=== PATIENT | male | born 1965 | race Caucasian/White ===

== ENCOUNTER 2017-03-04 21:26 | Emergency (ER) | payer OTHER ==
[2017-03-04 21:34] VITALS: BP 127/61; PULSE 116; TEMP 98.1; BMI 25.6
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
== END 2017-03-04 23:34 | disposition left against medical advice (07) ==
LOC: JER 21:26 → JERFT 21:26 → JER 23:34
DX: K62.89 Other specified diseases of anus and rectum (principal); T18.5XXA Foreign body in anus and rectum, initial encounter; K64.9 Unspecified hemorrhoids; K59.00 Constipation, unspecified
CPT/HCPCS: 72170-TC; 74190-TC; 99281-25

== ENCOUNTER 2017-07-06 10:22 | Inpatient (IN) | payer OTHER ==
[2017-07-06 10:51] VITALS: BMI 26.6
--- NOTE | 2017-07-06 13:04 | HP ---
CIWA Score - CIWA Score Nausea/Vomitin (NAUSEA AND DIARRHEA) Muscle Tremors: 4-Moderate,w/Arms Extend Anxiety: 4-Mod. Anxious/Guarded Agitation: 3 Paroxysmal Sweats: 1-Minimal Palms Moist Orientation: 0-Oriented Tacttile Disturbances: 2-Mild Itch/Numbness/Burn (NUMBNESS/BURNING SENSATION ON HANDS) Auditory Disturbances: 0-None Visual Disturbances: 0-None Headache: 1-Very Mild CIWA-Ar Total Score: 20 Admission ROS S - HPI Chief Complaint: ALCOHOL WITHDRAWAL SX Allergies/Adverse Reactions: Allergies Allergy/AdvReac Type Severity Reaction Status Date / Time No Known Allergies Allergy Verified 07/06/17 10:59 History of Present Illness: 52 Y/O H/MALE WITH A HX OF ALCOHOL DEPENDENCE SEEKING DETOX TX. FIRST TIME HERE. Exam Limitations: No Limitations - Ebola screening Have you traveled outside of the country in the last 21 days: No Have you had contact with anyone from an Ebola affected area: No Have you been sick,other than usual withdrawal symptoms: No Do you have a fever: No - Review of Systems Constitutional: Chills, Loss of Appetite, Night Sweats, Changes in sleep, Unintentional Wgt. Loss EENT: reports: Blurred Vision, Tearing, Nose Congestion, Dental Problems ( MISSING TEETH) Respiratory: reports: No Symptoms reported Cardiac: reports: Lightheadedness GI: reports: Diarrhea, Nausea, Poor Fluid Intake, Vomiting : reports: Other (HX KIDNEY STONES) Musculoskeletal: reports: Back Pain, Joint Pain, Muscle Pain Integumentary: reports: Lesions (INGROWN HAIR. SCRAPE FROM SHAVING ON RIGHT SIDE BEARDED AREA) Neuro: reports: Tremors Endocrine: reports: No Symptoms Reported Hematology: reports: No Symptoms Reported Psychiatric: reports: Orientated x3, Anxious, Depressed Other Systems: Reviewed and Negative Patient History - Patient Medical History Hx Anemia: No Hx Asthma: No Hx Chronic Obstructive Pulmonary Disease (COPD): No Hx Cardiac Disorders: No Hx Hypertension: No Hx Hypercholesterolemia: No HX Cerebrovascular Accident: No Hx Seizures: No Hx Diabetes: No Hx Gastrointestinal Disorders: Yes (acid reflux-NEXIUM) Hx Genitourinary Disorders: No Hx Sexually Transmitted Disorders: No (DENIES) Hx Renal Disease (ESRD): Yes (KIDNEY STONES IN THE PAST) Hx Thyroid Disease: No Hx Human Immunodeficiency Virus (HIV): No (NEGATIVE HX) Hx Hepatitis C: No Hx Depression: Yes (NEVER ON MEDS. ) Hx Suicide Attempt: No (DENIES S/I) Hx Schizophrenia: No Other Medical History: HX INSOMNIA - Patient Surgical History Past Surgical History: Yes Hx Neurologic Surgery: No Hx Cataract Extraction: No Hx Cardiac Surgery: No Hx Lung Surgery: No Hx Breast Surgery: No Hx Breast Biopsy: No Hx Abdominal Surgery: Yes (gastric sleeve) Hx Appendectomy: No Hx Cholecystectomy: No Hx Genitourinary Surgery: No Hx Orthopedic Surgery: Yes (laminectomy in 1996/spinal fusion in 2013) Anesthesia Reaction: No - PPD History Previous Implant?: Yes Documented Results: Negative w/o proof Implanted On Prior R Admission?: No PPD to be Administered?: Yes - Reproductive History Patient is a Female of Child Bearing Age (11 -55 yrs old): No (MALE) - Smoking Cessation Smoking history: Never smoked Have you smoked in the past 12 months: No Hx Chewing Tobacco Use: No Initiated information on smoking cessation: No - Substance & Tx. History Hx Alcohol Use: Yes (VODKA) Substance Use Type: Alcohol Hx Substance Use Treatment: Yes (LAST TX AT [facility]) - Substances Abused Alcohol-vodka Route: Oral Frequency: Daily Amount used: 1 pt. Age of first use: 17 Date of Last Use: 07/05/17 Family Disease History - Family Disease History Family Disease History: Heart Disease: Mother () Admission Physical Exam BHS - Vital Signs Vital Signs: Vital Signs - 24 hr 07/06/17 10:48 Temperature 98.3 F Pulse Rate 99 H Respiratory 20 Rate Blood Pressure 128/87 - Physical General Appearance: Yes: Moderate Distress, Irritable, Anxious HEENTM: Yes: EOMI, Normocephalic, YOLIS, Pharynx Normal Respiratory: Yes: Chest Non-Tender, Lungs Clear, Normal Breath Sounds, No Respiratory Distress Neck: Yes: No masses,lesions,Nodules, Supple, Trachea in good position Breast: Yes: Breast Exam Deferred Cardiology: Yes: Regular Rhythm, Regular Rate, S1, S2 Abdominal: Yes: Normal Bowel Sounds, Non Tender, Flat Genitourinary: Yes: Other (N/C) Back: Yes: Within Normal Limits Musculoskeletal: Yes: full range of Motion, Gait Steady Extremities: Yes: Normal Range of Motion, Non-Tender Neurological: Yes: blackjack dealer II-XII NML intact, Fully Oriented, Alert, Motor Strength 5/5 Integumentary: Yes: Dry, Warm Lymphatic: Yes: Within Normal Limits - Diagnostic (1) Alcohol dependence with uncomplicated withdrawal Current Visit: Yes Status: Acute Cleared for Admission [facility] - Detox or Rehab [facility] Level of Care: Medically Managed Detox Regimen/Protocol: Librium [facility] Breath Alcohol Content Breath Alcohol Content: 0 Urine Drug Screen - Results Drug Screen Negative: No Urine Drug Screen Results: BZO-Benzodiazepines
[2017-07-06] MEDS ORDERED: MAG HYDROX/AL HYDROX/SIMETH 30 ML UNIT-DOSE CUP PO PRN (13:12)
[2017-07-06] MEDS ORDERED: MAGNESIUM HYDROX 2400MG/30ML ORAL SUSPENSION 30 ML CUP PO PRN (13:12)
[2017-07-06] MEDS ORDERED: guaiFENesin/D-METHORPHAN HB 10 ML UNIT-DOSE CUPS PO PRN (13:12)
[2017-07-06] MEDS ORDERED: MENTHOL/PHENOL 1 EACH UD MM PRN (13:12)
[2017-07-06] MEDS ORDERED: P-EPHED 60MG/TRIPROLIDI 2.5MG TABLET PO PRN (13:12)
[2017-07-06] MEDS ORDERED: IBUPROFEN 400 MG TABLET (FP) PO PRN (13:12)
[2017-07-06] MEDS ORDERED: ACETAMINOPHEN 325 MG TABLET (FP) PO PRN (13:12)
[2017-07-06] MEDS ORDERED: MAGNESIUM CITRATE 300 ML BOTTLE PO PRN (13:12)
[2017-07-06] MEDS ORDERED: chlordiazePOXIDE HCL 25 MG CAPSULE PO PRN (13:12)
[2017-07-06] MEDS ORDERED: hydrOXYzine PAMOATE 50 MG CAPSULE (FP) PO PRN (13:12)
[2017-07-06] MEDS ORDERED: chlordiazePOXIDE HCL 25 MG CAPSULE PO ONE (14:30)
[2017-07-06] MEDS: BACITRACIN 0.9 GM PACKET TP SCH ×2 (15:23→22:39)
[2017-07-06] MEDS: chlordiazePOXIDE HCL 25 MG CAPSULE PO SCH ×2 (17:42→22:39)
[2017-07-06] MEDS: LOPERAMIDE HCL 2 MG CAPSULE PO PRN (21:53)
[2017-07-06] MEDS: THIAMINE HCL 100 MG TABLET (FP) PO SCH (22:39)
[2017-07-06] MEDS: MELATONIN 5 MG TABLETS PO PRN (22:40)
[2017-07-07 03:35] LABS: URINE APPEARANCE CLEAR; URINE BILIRUBIN NEGATIVE (<2.0 mg/dL); URINE COLOR YELLOW; URINE GLUCOSE (UA) NEGATIVE (NEGATIVE); URINE KETONE NEGATIVE (NEGATIVE); URINE LEUK ESTERASE TRACE (NEGATIVE); URINE NITRITE NEGATIVE (NEGATIVE); URINE PROTEIN NEGATIVE (NEGATIVE); URINE UROBILINOGEN NEGATIVE mg/dL (0.2-1.0)
[2017-07-07 03:44] LABS: EPI CELLS RARE /HPF (FEW); URINE BACTERIA RARE /hpf (NONE SEEN); URINE HYALINE CAST 4 /lpf; URINE MUCUS FEW
[2017-07-07] MEDS: chlordiazePOXIDE HCL 25 MG CAPSULE PO SCH ×4 (05:38→22:32)
[2017-07-07 09:39] LABS: HEMATOCRIT 44.9 % (35.4-49); HEMOGLOBIN 15.3 GM/dL (11.7-16.9); MEAN PLT VOLUME 9.5 fl (7.5-11.1); PLATELET COUNT 253 K/MM3 (134-434); RBC 4.78 M/mm3 (4.00-5.60); RDW 14.3 % (11.9-15.9); WHITE BLOOD COUNT 5.9 K/mm3 (4.0-10.0)
[2017-07-07 09:50] LABS: CHLORIDE 101 mmol/L (98-107); POTASSIUM 3.4 mmol/L (3.5-5.1); SODIUM 137 mmol/L (136-145)
[2017-07-07] MEDS ORDERED: PANTOPRAZOLE 40 MG TABLET (FP) PO ONE (09:54)
[2017-07-07 10:05] LABS: ALBUMIN 4.6 g/dl (3.4-5.0); ALK PHOS 94 U/L (45-117); ANION GAP 8 (8-16); BLOOD UREA NITROGEN 6 mg/dL (7-18); CALCIUM 8.7 mg/dL (8.5-10.1); CO2 28 mmol/L (21-32); CREATININE 1.2 mg/dL (0.7-1.3); GLUCOSE,RANDOM 61 mg/dL (74-106); SGOT/AST 23 U/L (15-37); SGPT/ALT 27 U/L (12-78); TOT PROT 8.6 g/dl (6.4-8.2)
[2017-07-07] MEDS: BACITRACIN 0.9 GM PACKET TP SCH ×2 (10:17→22:31)
[2017-07-07] MEDS: PRENATAL VITAMINS W/ FOLIC ACID TABLET (FP) PO SCH (10:17)
[2017-07-07 10:33] LABS: SICKLE CELL SCREEN NEGATIVE (NEGATIVE)
--- NOTE | 2017-07-07 11:25 | EKG ---
Test Reason : Blood Pressure : / mmHG Vent. Rate : 086 BPM Atrial Rate : 086 BPM P-R Int : 128 ms QRS Dur : 084 ms QT Int : 380 ms P-R-T Axes : 057 046 058 degrees QTc Int : 454 ms NORMAL SINUS RHYTHM NORMAL ECG NO PREVIOUS ECGS AVAILABLE Confirmed by KRISTINA ISAACS MD ([id number]) on 07/07/2017 11:25:16 AM Referred By: Confirmed By:KRISTINA ISAACS MD
[2017-07-07] MEDS ORDERED: PNEUMOCOCCAL 23 VACCINE 0.5 ML VIAL IM ONE (12:00)
[2017-07-07] MEDS ORDERED: PNEUMOC 13-VAL CONJ-DIP CRM/PF 0.5 ML DISP.SYRIN IM ONE (12:00)
--- NOTE | 2017-07-07 13:13 | PN ---
[facility] CIWA - CIWA Score Nausea/Vomitin-No Nausea/No Vomiting Muscle Tremors: 4-Moderate,w/Arms Extend Anxiety: 2 Agitation: 3 Paroxysmal Sweats: 2 Orientation: 0-Oriented Tacttile Disturbances: 2-Mild Itch/Numbness/Burn Auditory Disturbances: 1-Very Mild Visual Disturbances: 3-Moderate Sensitivity Headache: 0-None Present CIWA-Ar Total Score: 17 S Progress Note (SOAP) Subjective: Sweating, Stomach Cramping, Diarrhea, Tremors. Objective: PATIENT A & O X 3, OBSERVED AMBULATING ON UNIT. NO ACUTE DISTRESS. 07/07/17 13:14 Vital Signs Temperature 97.9 F 07/07/17 09:13 Pulse Rate 82 07/07/17 09:13 Respiratory Rate 18 07/07/17 09:13 Blood Pressure 117/74 07/07/17 09:13 O2 Sat by Pulse Oximetry (%) Laboratory Tests 07/06/17 07/06/17 07/07/17 13:35 15:10 05:50 WBC 5.9 RBC 4.78 Hgb 15.3 Hct 44.9 MCV 94.0 MCH 32.0 MCHC 34.0 RDW 14.3 Plt Count 253 MPV 9.5 Sickle Cell Screen Negative Sodium Potassium Chloride Carbon Dioxide Anion Gap BUN Creatinine Creat Clearance w eGFR Random Glucose Calcium Total Bilirubin AST ALT Alkaline Phosphatase Total Protein Albumin Urine Color Yellow Urine Appearance Clear Urine pH 7.0 Ur Specific [place] 1.016 Urine Protein Negative Urine Glucose (UA) Negative Urine Ketones Negative Urine Blood Negative Urine Nitrite Negative Urine Bilirubin Negative Urine Urobilinogen Negative Ur Leukocyte Esterase Trace Urine WBC (Auto) 8 Urine RBC (Auto) 10 Ur Epithelial Cells Rare Urine Bacteria Rare Hyaline Casts 4 Urine Mucus Few RPR Titer HIV 1&2 Antibody Screen Negative HIV P24 Antigen Negative 07/07/17 07/07/17 05:50 05:50 WBC RBC Hgb Hct MCV MCH MCHC RDW Plt Count MPV Sickle Cell Screen Sodium 137 Potassium 3.4 L Chloride 101 Carbon Dioxide 28 Anion Gap 8 BUN 6 L Creatinine 1.2 Creat Clearance w eGFR > 60 Random Glucose 61 L Calcium 8.7 Total Bilirubin 1.0 AST 23 ALT 27 Alkaline Phosphatase 94 Total Protein 8.6 H Albumin 4.6 Urine Color Urine Appearance Urine pH Ur Specific [place] Urine Protein Urine Glucose (UA) Urine Ketones Urine Blood Urine Nitrite Urine Bilirubin Urine Urobilinogen Ur Leukocyte Esterase Urine WBC (Auto) Urine RBC (Auto) Ur Epithelial Cells Urine Bacteria Hyaline Casts Urine Mucus RPR Titer Nonreactive HIV 1&2 Antibody Screen HIV P24 Antigen LABS NOTED. 07/07/17 13:15 Assessment: 07/07/17 13:14 WITHDRAWAL SYMPTOMS. HYPOKALEMIA. 07/07/17 13:17 Plan: CONTINUE DETOX. K-DUR, 20 MEQ PO BID. REPEAT UA FOR ADMISSION ABNORMALITIES. INCREASE DAILY PO FLUID INTAKE.
[2017-07-07] MEDS ORDERED: POTASSIUM CHLORIDE TABS 20 MEQ TABLET.ER (FP) PO ONE (13:16)
[2017-07-07] MEDS: LOPERAMIDE HCL 2 MG CAPSULE PO PRN (14:33)
[2017-07-07] MEDS: POTASSIUM CHLORIDE TABS 20 MEQ TABLET.ER (FP) PO SCH (17:29)
--- NOTE | 2017-07-07 17:42 | CONSULT ---
[facility] Psychiatric Consult - Data Date of interview: 07/07/17 Admission source: [facility] Identifying data: First admission to [facility] for this 52 y/o [place]- [place] male seeking detox treatment on for alcohol and cocaine dependence.Patient is single,a father ot two,domiciled,unemployed and supported on [employer] benefits. Substance Abuse History: Discussed with the patient.Confirmed history of alcohol abuse since age 17 and occasional use of cocaine.Smoking history: Never smoked. Have you smoked in the past 12 months: No. Hx Chewing Tobacco Use: No. Initiated information on smoking cessation: No. - Substance & Tx. History. Hx Alcohol Use: Yes (VODKA). Substance Use Type: Alcohol. Hx Substance Use Treatment: Yes (LAST TX AT [facility]). - Substances Abused. Alcohol-vodka. Route: Oral. Frequency: Daily. Amount used: 1 pt. Age of first use: 17. Date of Last Use: 07/05/17 Medical History: GERD,history of gastric sleeve,kidney stones,hemorrhoids, chronic lumbar pain and past surgeries (spinal fusion + laminectomy). Psychiatric History: Patient denies. Physical/Sexual Abuse/Trauma History: Patient denies. Additional Comment: Urine Drug Screen Results: BZO-Benzodiazepines.Noted. Mental Status Exam - Mental Status Exam Alert and Oriented to: Time, Place, Person Cognitive Function: Good Patient Appearance: Well Groomed Mood: Euthymic Affect: Appropriate, Normal Range Patient Behavior: Appropriate, Cooperative Speech Pattern: Clear, Appropriate Voice Loudness: Normal Thought Process: Intact, Goal Oriented Thought Disorder: Not Present Hallucinations: Denies Suicidal Ideation: Denies Homicidal Ideation: Denies Insight/Judgement: Fair Sleep: Well Appetite: Good Muscle strength/Tone: Normal Gait/Station: Normal Psychiatric Findings - Problem List ([place] 1, 2,3) (1) Alcohol dependence with uncomplicated withdrawal Current Visit: Yes Status: Acute - Initial Treatment Plan Initial Treatment Plan: Psychoeducation.Detoxification.Observation.
[2017-07-07] MEDS: THIAMINE HCL 100 MG TABLET (FP) PO SCH (22:31)
[2017-07-07] MEDS: MELATONIN 5 MG TABLETS PO PRN (22:32)
[2017-07-08] MEDS: PANTOPRAZOLE 40 MG TABLET (FP) PO SCH (05:20)
[2017-07-08] MEDS: chlordiazePOXIDE HCL 25 MG CAPSULE PO SCH ×2 (05:20→10:07)
[2017-07-08] MEDS: PRENATAL VITAMINS W/ FOLIC ACID TABLET (FP) PO SCH (10:07)
[2017-07-08] MEDS: BACITRACIN 0.9 GM PACKET TP SCH ×2 (10:07→22:04)
[2017-07-08] MEDS: POTASSIUM CHLORIDE TABS 20 MEQ TABLET.ER (FP) PO SCH ×2 (10:08→17:23)
[2017-07-08] MEDS: LOPERAMIDE HCL 2 MG CAPSULE PO PRN (10:11)
[2017-07-08 10:42] LABS: URINE APPEARANCE SLCLOUDY; URINE BILIRUBIN NEGATIVE (<2.0 mg/dL); URINE COLOR LTYELLOW; URINE GLUCOSE (UA) NEGATIVE (NEGATIVE); URINE KETONE NEGATIVE (NEGATIVE); URINE NITRITE NEGATIVE (NEGATIVE); URINE PROTEIN NEGATIVE (NEGATIVE); URINE UROBILINOGEN NEGATIVE mg/dL (0.2-1.0)
[2017-07-08 10:49] LABS: URINE LEUK ESTERASE 3+ (NEGATIVE)
[2017-07-08 10:52] LABS: EPI CELLS RARE /HPF (FEW); URINE MUCUS RARE
[2017-07-08] MEDS: chlordiazePOXIDE 5 MG CAPSULE PO SCH ×2 (17:21→22:05)
--- NOTE | 2017-07-08 17:36 | PN ---
[facility] CIWA - CIWA Score Nausea/Vomitin-No Nausea/No Vomiting Muscle Tremors: 3 Anxiety: 4-Mod. Anxious/Guarded Agitation: 4-Moderately Restless Paroxysmal Sweats: No Perspiration Orientation: 0-Oriented Tacttile Disturbances: 2-Mild Itch/Numbness/Burn Auditory Disturbances: 0-None Visual Disturbances: 2-Mild Sensitivity Headache: 0-None Present CIWA-Ar Total Score: 15 BHS Progress Note (SOAP) Subjective: Tremors, Anxious, Body Aches, Diarrhea. Objective: PATIENT A & O X 3, OBSERVED AMBULATING ON UNIT. NO ACUTE DISTRESS. 07/08/17 17:37 Vital Signs Temperature 97.8 F 07/08/17 17:14 Pulse Rate 92 H 07/08/17 17:14 Respiratory Rate 18 07/08/17 17:14 Blood Pressure 98/58 07/08/17 17:14 O2 Sat by Pulse Oximetry (%) Laboratory Tests 07/06/17 07/06/17 07/07/17 13:35 15:10 05:50 WBC 5.9 RBC 4.78 Hgb 15.3 Hct 44.9 MCV 94.0 MCH 32.0 MCHC 34.0 RDW 14.3 Plt Count 253 MPV 9.5 Sickle Cell Screen Negative Sodium Potassium Chloride Carbon Dioxide Anion Gap BUN Creatinine Creat Clearance w eGFR Random Glucose Calcium Total Bilirubin AST ALT Alkaline Phosphatase Total Protein Albumin Urine Color Yellow Urine Appearance Clear Urine pH 7.0 Ur Specific [place] 1.016 Urine Protein Negative Urine Glucose (UA) Negative Urine Ketones Negative Urine Blood Negative Urine Nitrite Negative Urine Bilirubin Negative Urine Urobilinogen Negative Ur Leukocyte Esterase Trace Urine WBC (Auto) 8 Urine RBC (Auto) 10 Ur Epithelial Cells Rare Urine Bacteria Rare Hyaline Casts 4 Urine Mucus Few RPR Titer HIV 1&2 Antibody Screen Negative HIV P24 Antigen Negative 07/07/17 07/07/17 07/08/17 05:50 05:50 07:50 WBC RBC Hgb Hct MCV MCH MCHC RDW Plt Count MPV Sickle Cell Screen Sodium 137 Potassium 3.4 L Chloride 101 Carbon Dioxide 28 Anion Gap 8 BUN 6 L Creatinine 1.2 Creat Clearance w eGFR > 60 Random Glucose 61 L Calcium 8.7 Total Bilirubin 1.0 AST 23 ALT 27 Alkaline Phosphatase 94 Total Protein 8.6 H Albumin 4.6 Urine Color Ltyellow Urine Appearance Slcloudy Urine pH 9.0 H D Ur Specific [place] 1.008 Urine Protein Negative Urine Glucose (UA) Negative Urine Ketones Negative Urine Blood Negative Urine Nitrite Negative Urine Bilirubin Negative Urine Urobilinogen Negative Ur Leukocyte Esterase 3+ H Urine WBC (Auto) 248 Urine RBC (Auto) 1 Ur Epithelial Cells Rare Urine Bacteria Hyaline Casts Urine Mucus Rare RPR Titer Nonreactive HIV 1&2 Antibody Screen HIV P24 Antigen LABS NOTED. Assessment: 07/08/17 17:37 WITHDRAWAL SYMPTOMS. HYPOKALEMIA. 07/08/17 17:39 Plan: CONTINUE DETOX. URINE C + S FOR ADMISSION AND REPEAT UA ABNORMALITIES. START PROHYLACTIC BACTRIM BID FOR POSSIBLE UTI UNTIL RESULTS OF URINE C + S AVAILABLE. NAPROXEN, FLEXERIL PRN FOR BODY ACHES / MUSCLE SPASMS. CONTINUE K-DUR. INCREASE DAILY PO FLUID INTAKE.
[2017-07-08] MEDS: NAPROXEN 375 MG TABLET (FP) PO SCH (22:04)
[2017-07-08] MEDS: THIAMINE HCL 100 MG TABLET (FP) PO SCH (22:05)
[2017-07-08] MEDS: SULFAMETHOXAZOLE/TRIMETHOPRIM 800MG/160MG D.S. TABLET PO SCH (22:05)
[2017-07-08] MEDS: CYCLOBENZAPRINE HCL 10 MG TABLET (FP) PO PRN (22:05)
[2017-07-08] MEDS: MELATONIN 5 MG TABLETS PO PRN (22:06)
[2017-07-09] MEDS: chlordiazePOXIDE 5 MG CAPSULE PO SCH ×2 (05:10→10:19)
[2017-07-09] MEDS: PANTOPRAZOLE 40 MG TABLET (FP) PO SCH (05:10)
[2017-07-09] MEDS: PRENATAL VITAMINS W/ FOLIC ACID TABLET (FP) PO SCH (10:20)
[2017-07-09] MEDS: SULFAMETHOXAZOLE/TRIMETHOPRIM 800MG/160MG D.S. TABLET PO SCH ×2 (10:20→22:08)
[2017-07-09] MEDS: NAPROXEN 375 MG TABLET (FP) PO SCH ×2 (10:20→22:08)
[2017-07-09] MEDS: BACITRACIN 0.9 GM PACKET TP SCH ×2 (10:21→22:08)
[2017-07-09] MEDS: POTASSIUM CHLORIDE TABS 20 MEQ TABLET.ER (FP) PO SCH (10:24)
--- NOTE | 2017-07-09 15:10 | PN ---
BHS Progress Note (SOAP) Subjective: Sweating, interrupted sleep Objective: 07/09/17 15:06 Last Vital Signs Temp Pulse Resp BP Pulse Ox 98.6 F 79 18 117/77 07/09/17 13:42 07/09/17 13:42 07/09/17 13:42 07/09/17 13:42 Laboratory Tests 07/06/17 07/06/17 07/07/17 13:35 15:10 05:50 WBC 5.9 RBC 4.78 Hgb 15.3 Hct 44.9 MCV 94.0 MCH 32.0 MCHC 34.0 RDW 14.3 Plt Count 253 MPV 9.5 Sickle Cell Screen Negative Sodium Potassium Chloride Carbon Dioxide Anion Gap BUN Creatinine Creat Clearance w eGFR Random Glucose Calcium Total Bilirubin AST ALT Alkaline Phosphatase Total Protein Albumin Urine Color Yellow Urine Appearance Clear Urine pH 7.0 Ur Specific [place] 1.016 Urine Protein Negative Urine Glucose (UA) Negative Urine Ketones Negative Urine Blood Negative Urine Nitrite Negative Urine Bilirubin Negative Urine Urobilinogen Negative Ur Leukocyte Esterase Trace Urine WBC (Auto) 8 Urine RBC (Auto) 10 Ur Epithelial Cells Rare Urine Bacteria Rare Hyaline Casts 4 Urine Mucus Few RPR Titer HIV 1&2 Antibody Screen Negative HIV P24 Antigen Negative 07/07/17 07/07/17 07/08/17 05:50 05:50 07:50 WBC RBC Hgb Hct MCV MCH MCHC RDW Plt Count MPV Sickle Cell Screen Sodium 137 Potassium 3.4 L Chloride 101 Carbon Dioxide 28 Anion Gap 8 BUN 6 L Creatinine 1.2 Creat Clearance w eGFR > 60 Random Glucose 61 L Calcium 8.7 Total Bilirubin 1.0 AST 23 ALT 27 Alkaline Phosphatase 94 Total Protein 8.6 H Albumin 4.6 Urine Color Ltyellow Urine Appearance Slcloudy Urine pH 9.0 H D Ur Specific [place] 1.008 Urine Protein Negative Urine Glucose (UA) Negative Urine Ketones Negative Urine Blood Negative Urine Nitrite Negative Urine Bilirubin Negative Urine Urobilinogen Negative Ur Leukocyte Esterase 3+ H Urine WBC (Auto) 248 Urine RBC (Auto) 1 Ur Epithelial Cells Rare Urine Bacteria Hyaline Casts Urine Mucus Rare RPR Titer Nonreactive HIV 1&2 Antibody Screen HIV P24 Antigen Labs reviewed: K 3.4, abnormal UA Assessment: 07/09/17 15:07 Withdrawal symptoms Noted with mild hypokalemia and abnormal UA Plan: Continue detox Encouraged PO hydration (water) Mild hypokalemia: on PO potassium supplement Abnormal UA: repeat UA
[2017-07-09] MEDS: chlordiazePOXIDE HCL 10 MG CAPSULE PO SCH ×2 (17:20→22:09)
[2017-07-09] MEDS: CYCLOBENZAPRINE HCL 10 MG TABLET (FP) PO PRN (21:09)
[2017-07-09] MEDS: THIAMINE HCL 100 MG TABLET (FP) PO SCH (22:08)
[2017-07-09] MEDS: MELATONIN 5 MG TABLETS PO PRN (22:10)
[2017-07-10] MEDS: chlordiazePOXIDE HCL 10 MG CAPSULE PO SCH ×2 (05:22→10:13)
[2017-07-10] MEDS: PANTOPRAZOLE 40 MG TABLET (FP) PO SCH (05:22)
[2017-07-10] MEDS: PRENATAL VITAMINS W/ FOLIC ACID TABLET (FP) PO SCH (09:18)
[2017-07-10] MEDS: SULFAMETHOXAZOLE/TRIMETHOPRIM 800MG/160MG D.S. TABLET PO SCH (09:18)
[2017-07-10] MEDS: POTASSIUM CHLORIDE TABS 20 MEQ TABLET.ER (FP) PO SCH (09:18)
[2017-07-10] MEDS: NAPROXEN 375 MG TABLET (FP) PO SCH (09:19)
[2017-07-10] MEDS: BACITRACIN 0.9 GM PACKET TP SCH (09:19)
[2017-07-10 09:20] VITALS: BP 104/63; PULSE 77; TEMP 98.2
--- NOTE | 2017-07-10 10:13 | PN ---
[facility] Progress Note (SOAP) Subjective: DETOX COMPLETED. ALERT O X 3. NAD. Objective: 07/10/17 10:09 Vital Signs Temperature 98.2 F 07/10/17 09:19 Pulse Rate 77 07/10/17 09:19 Respiratory Rate 18 07/10/17 09:19 Blood Pressure 104/63 07/10/17 09:19 O2 Sat by Pulse Oximetry (%) Laboratory Tests 07/06/17 07/06/17 07/07/17 13:35 15:10 05:50 WBC 5.9 RBC 4.78 Hgb 15.3 Hct 44.9 MCV 94.0 MCH 32.0 MCHC 34.0 RDW 14.3 Plt Count 253 MPV 9.5 Sickle Cell Screen Negative Sodium Potassium Chloride Carbon Dioxide Anion Gap BUN Creatinine Creat Clearance w eGFR Random Glucose Calcium Total Bilirubin AST ALT Alkaline Phosphatase Total Protein Albumin Urine Color Yellow Urine Appearance Clear Urine pH 7.0 Ur Specific [place] 1.016 Urine Protein Negative Urine Glucose (UA) Negative Urine Ketones Negative Urine Blood Negative Urine Nitrite Negative Urine Bilirubin Negative Urine Urobilinogen Negative Ur Leukocyte Esterase Trace Urine WBC (Auto) 8 Urine RBC (Auto) 10 Ur Epithelial Cells Rare Urine Bacteria Rare Hyaline Casts 4 Urine Mucus Few RPR Titer HIV 1&2 Antibody Screen Negative HIV P24 Antigen Negative 07/07/17 07/07/17 07/08/17 05:50 05:50 07:50 WBC RBC Hgb Hct MCV MCH MCHC RDW Plt Count MPV Sickle Cell Screen Sodium 137 Potassium 3.4 L Chloride 101 Carbon Dioxide 28 Anion Gap 8 BUN 6 L Creatinine 1.2 Creat Clearance w eGFR > 60 Random Glucose 61 L Calcium 8.7 Total Bilirubin 1.0 AST 23 ALT 27 Alkaline Phosphatase 94 Total Protein 8.6 H Albumin 4.6 Urine Color Ltyellow Urine Appearance Slcloudy Urine pH 9.0 H D Ur Specific [place] 1.008 Urine Protein Negative Urine Glucose (UA) Negative Urine Ketones Negative Urine Blood Negative Urine Nitrite Negative Urine Bilirubin Negative Urine Urobilinogen Negative Ur Leukocyte Esterase 3+ H Urine WBC (Auto) 248 Urine RBC (Auto) 1 Ur Epithelial Cells Rare Urine Bacteria Hyaline Casts Urine Mucus Rare RPR Titer Nonreactive HIV 1&2 Antibody Screen HIV P24 Antigen UC RESULT PENDING PROPHYLACTIC TREATMENT WITH BACTRIM PER PREVIOUS DAY'S NOTES. ASYMPTOMATIC Assessment: 07/10/17 10:11 MEDICALLY STABLE Plan: D/C PT TODAY PT IS REFERRED TO [id number], [place]. PT PREFERS TO CALL IN 2 DAYS FOR UC RESULT.
--- NOTE | 2017-07-10 10:16 | DS ---
[facility] Detox Discharge Summary Admission Date: 07/06/17 Discharge Date: 07/10/17 - History Present History: Alcohol Dependence Additional Comments: DETOX COMPLETED. ALERT O X 3. NAD. Pertinent Past History: PLEASE SEE DX BELOW. - Physical Exam Results Vital Signs: Vital Signs Temperature 98.2 F 07/10/17 09:19 Pulse Rate 77 07/10/17 09:19 Respiratory Rate 18 07/10/17 09:19 Blood Pressure 104/63 07/10/17 09:19 O2 Sat by Pulse Oximetry (%) Pertinent Admission Physical Exam Findings: WITHDRAWAL SX Laboratory Tests 07/06/17 07/06/17 07/07/17 13:35 15:10 05:50 WBC 5.9 RBC 4.78 Hgb 15.3 Hct 44.9 MCV 94.0 MCH 32.0 MCHC 34.0 RDW 14.3 Plt Count 253 MPV 9.5 Sickle Cell Screen Negative Sodium Potassium Chloride Carbon Dioxide Anion Gap BUN Creatinine Creat Clearance w eGFR Random Glucose Calcium Total Bilirubin AST ALT Alkaline Phosphatase Total Protein Albumin Urine Color Yellow Urine Appearance Clear Urine pH 7.0 Ur Specific [place] 1.016 Urine Protein Negative Urine Glucose (UA) Negative Urine Ketones Negative Urine Blood Negative Urine Nitrite Negative Urine Bilirubin Negative Urine Urobilinogen Negative Ur Leukocyte Esterase Trace Urine WBC (Auto) 8 Urine RBC (Auto) 10 Ur Epithelial Cells Rare Urine Bacteria Rare Hyaline Casts 4 Urine Mucus Few RPR Titer HIV 1&2 Antibody Screen Negative HIV P24 Antigen Negative 07/07/17 07/07/17 07/08/17 05:50 05:50 07:50 WBC RBC Hgb Hct MCV MCH MCHC RDW Plt Count MPV Sickle Cell Screen Sodium 137 Potassium 3.4 L Chloride 101 Carbon Dioxide 28 Anion Gap 8 BUN 6 L Creatinine 1.2 Creat Clearance w eGFR > 60 Random Glucose 61 L Calcium 8.7 Total Bilirubin 1.0 AST 23 ALT 27 Alkaline Phosphatase 94 Total Protein 8.6 H Albumin 4.6 Urine Color Ltyellow Urine Appearance Slcloudy Urine pH 9.0 H D Ur Specific [place] 1.008 Urine Protein Negative Urine Glucose (UA) Negative Urine Ketones Negative Urine Blood Negative Urine Nitrite Negative Urine Bilirubin Negative Urine Urobilinogen Negative Ur Leukocyte Esterase 3+ H Urine WBC (Auto) 248 Urine RBC (Auto) 1 Ur Epithelial Cells Rare Urine Bacteria Hyaline Casts Urine Mucus Rare RPR Titer Nonreactive HIV 1&2 Antibody Screen HIV P24 Antigen SEE PREVIOUS PROGRESS NOTE. - Treatment Hospital Course: Detox Protocol Followed, Detoxed Safely, Responded well, Discharged Condition Good, Rehab Referral Accepted Patient has Accepted a Rehab Referral to: [facility] - Medication Discharge Medications: Ambulatory Orders NK [No Known Home Medication] 03/04/17 - Diagnosis (1) Alcohol dependence with uncomplicated withdrawal Current Visit: Yes Status: Acute (2) Abnormal finding on urinalysis Current Visit: Yes Status: Acute (3) Hypokalemia Current Visit: Yes Status: Acute (4) GERD (gastroesophageal reflux disease) Current Visit: Yes Status: Chronic - AMA Did Patient Leave Against Medical Advice: No
== END 2017-07-10 10:15 | disposition home or self-care (01) | DRG 897 ==
LOC: YASAS 10:22 → Y3N 13:54
PROVIDERS: ADMIT Internal Medicine; ATTEND Internal Medicine
PROC: HZ2ZZZZ Detoxification Services for Substance Abuse Treatment (ICD-10-PCS; principal; 2017-07-06)
DX: F10.230 Alcohol dependence with withdrawal, uncomplicated (principal); E87.6 Hypokalemia; K21.9 Gastro-esophageal reflux disease without esophagitis; R82.90 Unspecified abnormal findings in urine; N40.0 Benign prostatic hyperplasia without lower urinary tract symptoms; G47.00 Insomnia, unspecified
CPT/HCPCS: 36415; 80053; 81003; 81015; 85027; 85660; 86593; 87086; 87389; 90732; 93005; 93010; G0009